=== PATIENT | female | born 1985 | race Two or more races ===

== ENCOUNTER 2021-01-31 21:02 | Emergency (ER) | payer MEDICAID ==
[~2021-01-31] VITALS: Ht 170.2 cm; Wt 89.2 kg
--- NOTE | 2021-01-31 22:29 | RAD ---
Exam: Chest one view INDICATION: Fever, cough TECHNIQUE: Frontal view of the chest Comparisons: None FINDINGS: The cardiomediastinal silhouette and pulmonary vessels are within normal limits. The lung and pleural spaces are clear. IMPRESSION: No acute cardiopulmonary process. Electronically signed by: Mary James MD (01/31/2021 10:27 PM) [facility]
[2021-01-31] MEDS ORDERED: IV NORMAL SALINE 1000ML BAG 1,000 ML IV ONE (22:30)
[2021-01-31] MEDS ORDERED: ONDANSETRON PF 4 MG/2 ML VIAL. IVP ONE (22:30)
[2021-01-31] MEDS ORDERED: KETOROLAC 30 MG/ML VIAL. IVP ONE (22:30)
[2021-01-31] MEDS ORDERED: DEXAMETHASONE SOD PHOS 20 MG/5 ML VIAL. IV ONE (22:30)
--- NOTE | 2021-01-31 22:35 | PHYS DOC ---
Past Medical History Past Medical History: UTI Additional Past Medical Histor: Pre-DM (LINDA HENNING DO) Past Surgical History: (LINDA HENNING DO) Smoking Status: Never Smoker Alcohol Use: None Drug Use: None (LINDA HENNING DO) General Adult EDM: Chief Complaint: MULTIPLE COMPLAINTS HPI: HPI: Patient is a 35 year old female who presents with 10 days of headache, cough, body aches, fever, chills, nausea, shortness of breath. Patient just moved here 10 days ago from [place]. She is not vaccinated for Covid. Rates her overall discomfort and pain a 8 out of 10. Denies abdominal pain, vomiting, diarrhea, dizziness, syncope, focal weakness, numbness or tingling, vision change. Denies past medical history. (CHOLO DENG APRN) Review of Systems: Review of Systems: Constitutional: + fever or +chills. [] Eyes: Denies change in visual acuity. [] HENT: Denies nasal congestion or sore throat. [] Respiratory: + cough or +shortness of breath. [] Cardiovascular: Denies chest pain or edema. [] GI: Denies abdominal pain, +nausea, denies omiting, bloody stools or diarrhea. [] : Denies dysuria. [] Musculoskeletal: Denies back pain or joint pain. + Generalized body aches [] Integument: Denies rash. [] Neurologic: + headache, denies focal weakness or sensory changes. [] Endocrine: Denies polyuria or polydipsia. [] Lymphatic: Denies swollen glands. [] Psychiatric: Denies depression or anxiety. [] (CHOLO DENG APRN) Heart Score: C/O Chest Pain: No Risk Factors: Risk Factors: DM, Current or recent (<one month) smoker, HTN, HLP, family history of CAD, obesity. Risk Scores: Score 0 - 3: 2.5% MACE over next 6 weeks - Discharge Home Score 4 - 6: 20.3% MACE over next 6 weeks - Admit for Clinical Observation Score 7 - 10: 72.7% MACE over next 6 weeks - Early Invasive Strategies (CHOLO DENG APRN) Allergies: Allergies: Allergies Coded Allergies Type Severity Reaction Last Updated Verified No Known Drug Allergies 01/31/21 No (CHOLO DENG APRN) Physical Exam: PE: Constitutional: Well developed, well nourished, no acute distress, non-toxic appearance. [] HENT: Normocephalic, atraumatic, bilateral external ears normal, oropharynx moist, no oral exudates, nose normal. [] Eyes: PERRLA, EOMI, conjunctiva normal, no discharge. [] Neck: Normal range of motion, no tenderness, supple, no stridor. [] Cardiovascular:Heart rate regular rhythm, no murmur [] Lungs & Thorax: Bilateral upper breath sounds clear lower diminished to auscultation [] Abdomen: Bowel sounds normal, soft, no tenderness, no masses, no pulsatile masses. [] Skin: Warm, dry, no erythema, no rash. [] Back: No tenderness, no CVA tenderness. [] Extremities: No tenderness, no cyanosis, no clubbing, ROM intact, no edema. [] Neurologic: Alert and oriented X 3, normal motor function, normal sensory function, no focal deficits noted. [] Psychologic: Affect normal, judgement normal, mood normal. [] (CHOLO DENG APRN) EKG: EKG: [] (CHOLO DENG APRN) EKG: @2255 NSR at 89bpm, NO ST elevation, QRS 78ms, QT/QTc 348/424ms, t wave inversion III (LINDA HENNING DO) Radiology/Procedures: Radiology/Procedures: [] Impression: [facility] [address], [place] [id number] IMAGING REPORT Signed PATIENT: ARTHUR TIDWELLACCOUNT: [id number] : 1985 LOCATION: ER AGE: 35 SEX: F EXAM STATUS: REG ER ORD. PHYSICIAN: CHOLO DENG APRN REASON: fever, cough PROCEDURE: PORTABLE CHEST 1V Exam: Chest one view INDICATION: Fever, cough TECHNIQUE: Frontal view of the chest Comparisons: None FINDINGS: The cardiomediastinal silhouette and pulmonary vessels are within normal limits. The lung and pleural spaces are clear. IMPRESSION: No acute cardiopulmonary process. Electronically signed by: Mary Gregorio MD (01/31/2021 10:27 PM) [facility] DICTATED and SIGNED BY: MARY GREGORIO MD DATE: 01/31/21 [id number] 0 (CHOLO DENG ORDERLY) Course & Med Decision Making: Course & Med Decision Making Pertinent Labs and Imaging studies reviewed. (See chart for details) COVID-19 CRITERIA: The patient was evaluated during the global COVID-19 pandemic, and that diagnosis was suspected/considered upon their initial presentation. Their evaluation, treatment and testing was consistent with current guidelines for patients who present with complaints or symptoms that may be related to COVID-19. See HPI. Alert and oriented x4. Ambulatory steady gait. Speaks in full clear sentences. Balloon Pilot phone used. Patient is Divehi-speaking. Abdomen is soft and nontender. Lungs are clear in upper lobes and diminished in lower lobes. Skin pink warm and dry. She is given dexamethasone and Zofran in the ED. She is also given a liter of normal saline. Patient is 100% on room air. Chest x-ray shows no acute findings. [] (CHOLO DENG ORDERLY) Dragon Disclaimer: Dragon Disclaimer: This electronic medical record was generated, in whole or in part, using a voice recognition dictation system. (CHOLO DENG ORDERLY) Departure Departure Impression: Primary Impression: COVID-19 Disposition: 01 HOME / SELF CARE / HOMELESS Condition: STABLE Referrals: NO PCP (PCP) Patient Instructions: Viral Syndrome Additional Instructions: Definicin Se le realiz la prueba de deteccin del COVID-19 o se le diagnostic dicha enfermedad. Es cee infeccin ocasionada por un nuevo tipo de coronavirus. En la mayora de los casos, el COVID-19 provoca sntomas similares a los del resfriado. En algunas personas, puede ocasionar sntomas ms graves, donnie problemas respiratorios. No existe un tratamiento para el virus COVID-19. El cuerpo elimina la infeccin con el tiempo. El cuidado personal ayuda a aliviar el malestar. Pasos que debe seguir 1. Cuidados personales Descanse cuando sea necesario. Los hbitos saludables pueden ayudarlo a sentirse mejor. Algunas medidas para lograr cambios incluyen lo siguiente: - Elija alimentos saludables, donnie frutas y verduras. Jamila abundante cantidad de agua latanya todo el da. - Duerma devon por la noche. - Si fuma, intente no hacerlo. [place] ayudar a mejorar la respiracin. - Evite el alcohol. 2. Mantenga sanos a los dems El virus puede contagiarse a otras personas. Cada vez que estornuda o tose, se liberan gotitas. Las gotitas pueden entrar en la boca, la nariz o los ojos de las personas que se encuentran cerca de usted y ocasionar la infeccin. Para reducir las probabilidades de contagiar el virus COVID-19 a otros, tenga en cuenta lo siguiente: - Qudese en casa el tiempo que el mdico se lo indique. Es posible que deba quedarse en casa hasta que la enfermedad desaparezca. Salga nicamente para recibir atencin mdica o en atul de urgencia. - Evite las reas pblicas, los eventos o el transporte pblico. No reanude las actividades laborales o escolares hasta que el mdico lo autorice. - Llame previamente si necesita asistir a un centro mdico. Avise que es posible que haya contrado COVID-19. [place] ayudar a que le indiquen adonde debe dirigirse. Raphael[place] pueden pedirle que use cee mscara facial cuando vaya al consultorio. Si llama a los servicios de asistencia mdica de urgencias, avseles que es posible que haya contrado COVID-19. Mientras est en casa: - Evite el contacto directo con otras personas. Mantngase a cee distancia aproximada de 2 metros. Si es posible, pasen la mayor parte del tiempo en winslow separadas. - Use cee mscara facial si estar en contacto directo con otras personas, por ejemplo, si compartir cee habitacin o un vehculo. - Pida a alguien que limpie las superficies comunes de la casa. Limpie picaportes, mesadas y lavamanos con limpiadores domsticos todos los adamson. - Al toser o estornudar, cbrase con un pauelo de papel. Despus de usarlo, deschelo de inmediato. Si no tiene un pauelo de papel, tosa o estornude en el pliegue del codo. - Lvese las weston con frecuencia. Lvese las weston despus de estornudar o toser. Lvese con agua y jabn latanya, al menos, 20 segundos. Si no dispone de agua y jabn, use un limpiador de weston a base de alcohol. - No cocine para otros. Evite compartir objetos personales, donnie tenedores, cucharas o cepillos de dientes. - Mientras est enfermo, evite el contacto directo con las mascotas. No hay indicios de si el virus se transmite a las mascotas. Esta es cee medida de seguridad que debe tenerse en cuenta hasta que se sepa ms acerca de paulino virus. El aislamiento puede ser frustrante. La interaccin social puede ayudar. Mantngase en contacto con amigos y familiares por telfono u otros medios tecnolgicos. Puede interactuar con otras personas en el hogar, annika mantenga cee distancia borrego de aproximadamente 2 metros. Seguimiento Las pruebas para confirmar la presencia del COVID-19 pueden demorar algunos adamson. Es posible que deba seguir los pasos mencionados anteriormente hasta que estn los resultados de las pruebas. Lo llamarn del consultorio mdico para saber si guevara habido algn cambio en diaz redd. Tambin le avisarn cuando pueda volver a estar cerca de otras personas. Problemas a los que debe estar atento Comunquese con el mdico si no se recupera segn lo previsto o si tiene problemas donnie los siguientes: - Dificultad para respirar - Dolor de pecho - Empeoramiento de los sntomas Si pablo que tiene cee urgencia, llame a los servicios de asistencia mdica de urgencias de inmediato. As taken from [facility] Attending Signature Attending Signature I have reviewed the PA/AMUSEMENT RIDE OPERATOR's note and plan of care. I was available for consultation as needed during the patient's visit in the emergency department. I agree with the clinical impression, plan, and disposition. (LINDA HENNING DO) CHOLO DENG ORDERLY Jan 31, 2021 22:35 LINDA HENNING DO Jan 31, 2021 23:29
[2021-01-31] MEDS ORDERED: ALBUTEROL SULFATE 2.5 MG/3 ML NEBU. NEB ONE (23:00)
[2021-01-31 23:15] LABS: BASO # 0.1 x10^3/uL (0.0-0.2); BASO % 1 % (0-3); EOS # 0.1 x10^3/uL (0.0-0.7); EOS % 2 % (0-3); HEMATOCRIT 34.1 % (36.0-47.0); HEMOGLOBIN 11.7 g/dL (12.0-15.5); LYMPH # 1.8 x10^3/uL (1.0-4.8); LYMPH % 30 % (24-48); MEAN CORPUSCULAR HEMOGLOBIN 29 pg (25-35); MEAN CORPUSCULAR HGB CONC 34 g/dL (31-37); MEAN CORPUSCULAR VOLUME 86 fL (79-100); MONO # 0.4 x10^3/uL (0.0-1.1); MONO % 7 % (0-9); NEUT # 3.6 x10^3/uL (1.8-7.7); NEUT % 60 % (31-73); PLATELET COUNT 240 x10^3/uL (140-400); RED BLOOD COUNT 3.99 x10^6/uL (3.50-5.40); RED CELL DISTRIBUTION WIDTH 14.3 % (11.5-14.5); WHITE BLOOD COUNT 6.1 x10^3/uL (4.0-11.0)
[2021-01-31 23:33] LABS: BILIRUBIN,URINE NEGATIVE (NEG); CLARITY,URINE CLEAR; COLOR,URINE YELLOW; NITRITE,URINE NEGATIVE (NEG); PH,URINE 6.5 (<5.0-8.0); PROTEIN,URINE NEGATIVE (NEG-TRACE); UROBILINOGEN,URINE 0.2 mg/dL (0.2 mg/dL)
[2021-01-31 23:39] LABS: CALCIUM 8.6 mg/dL (8.5-10.1); GFR 62.4; POTASSIUM 3.7 mmol/L (3.5-5.1)
[2021-01-31 23:45] LABS: ALBUMIN 3.6 g/dL (3.4-5.0); ALBUMIN/GLOBULIN RATIO 0.9 (1.0-1.7); TOTAL BILIRUBIN 0.3 mg/dL (0.2-1.0); TOTAL PROTEIN 7.5 g/dL (6.4-8.2)
[2021-02-01 00:11] LABS: BACTERIA,URINE FEW /HPF (0-FEW)
[2021-02-01 01:26] VITALS: BP 112/87
--- NOTE | 2021-02-01 22:01 | EKG ---
[facility] [address] [place] [address] Test Date: 2021-01-31 Test Time: 22:55:27 Pat Name: ARTHUR TIDWELL Department: Room: Gender: F Computer Aided Design Drafter: : 1985 Requested By: CHOLO DENG Order Number: [id number] Reading MD: Measurements Intervals Canadian Rate: 89 P: 42 KS: 150 QRS: 58 QRSD: 78 T: 26 QT: 348 QTc: 424 Interpretive Statements SINUS RHYTHM NON SPECIFIC T ABNORMALITY BORDERLINE ECG RI6.02 No previous ECG available for comparison
== END 2021-02-01 01:53 | disposition home or self-care (01) ==
LOC: ER 21:02
DX: U07.1 COVID-19 (principal)
CPT/HCPCS: 36415; 71045; 80053; 81001; 81025; 83605; 84484; 85025; 85379; 87040; 87070; 87426; 87880; 93005; 94640; 96361; 96374; 96375; 99285; J1100; J1885; J2405; J7030; J7613

== ENCOUNTER 2021-02-05 03:38 | Emergency (ER) | payer MEDICAID ==
[~2021-02-05] VITALS: Ht 170.2 cm; Wt 160.0 kg
[2021-02-05 03:55] VITALS: BP 110/68
[2021-02-05] MEDS ORDERED: METH4TAB2 PO (03:59)
[2021-02-05] MEDS ORDERED: VENTOLIN HFA18 GM INH (03:59)
--- NOTE | 2021-02-05 04:00 | PHYS DOC ---
Past Medical History Past Medical History: No Pertinent History, UTI Additional Past Medical Histor: Pre-DM Past Surgical History: Smoking Status: Never Smoker Alcohol Use: None Drug Use: None General Adult EDM: Chief Complaint: Cough, fever, shortness of breath and known COVID-19 positive HPI: HPI: 35-year-old otherwise healthy female presents to the emergency department for 4 days of cough, wheezing/shortness of breath, loss of taste, headaches, body, tested positive for COVID-19 several days ago, says symptoms are persistent, denies any chest pain, no neck stiffness or photophobia, no known history of thromboembolism No recent travel or antibiotic use, of note patient is Portuguese-speaking and 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 Review of Systems: Review of Systems: General: positive for fever, chills and body aches Eyes: no blurred vision, no diplopia Skin: no rashes Neck: no swelling, no neck stiffness, no neck pain Heme: no bleeding, no lymph node enlargement Ear/Nose/Throat: No sore throat, + runny nose, no hearing loss, no difficulty swallowing Cardiovascular: no Chest pain, no palpitations Respiratory: + dyspnea, + cough, no hemoptysis Gastrointestinal: No abdominal pain, no nausea, no vomiting, no diarrhea, no blood in stool Genitourinary: no dysuria, no hematuria Musculoskeletal: no back pain, no leg pain, no arm pain, no arthralgia Neurologic: no headaches, no dizziness, no focal numbness/tingling, no focal weakness Psych: no depression, no anxiety, no SI/HI *All review of systems are negative other than what is noted above Heart Score: C/O Chest Pain: No Risk Factors: Risk Factors: DM, Current or recent (<one month) smoker, HTN, HLP, family history of CAD, obesity. Risk Scores: Score 0 - 3: 2.5% MACE over next 6 weeks - Discharge Home Score 4 - 6: 20.3% MACE over next 6 weeks - Admit for Clinical Observation Score 7 - 10: 72.7% MACE over next 6 weeks - Early Invasive Strategies Allergies: Allergies: Allergies Coded Allergies Type Severity Reaction Last Updated Verified No Known Drug Allergies 01/31/21 No Physical Exam: PE: Gen-well appearing, no acute distress Head: Normocephalic/Atraumatic ENT: atraumatic, PERRLA, EOMI, oropharynx clear Neck: supple, full ROM/strength, no JVD, no nuchal rigidity Lungs: no distress, speaks in full sentences, Clear to auscultation bilaterally CV: reg rate, rhythm, no murmus/rubs/gallops, peripheral pulses equal in all extremities Abdomen: soft/nontender, no guarding/rebound tenderness, no rigidity, non distended, normoactive bowel sounds Musculoskeletal: full ROM/strength in all extremities, atraumatic, no swelling Back: full range of motion/strength Skin: intact, no rashes Lymph: no gross DIONE Neuro: alert and oriented x 4, CN 2-12 grossly intact, Motor strength is 5/5 in all extremities, no focal sensory deficits, no focal ataxia, ambulatory with steady gait Psych: normal mood/affect EKG: EKG: [] Radiology/Procedures: Radiology/Procedures: [] Course & Med Decision Making: Course & Med Decision Making Pertinent Labs and Imaging studies reviewed. (See chart for details) [] 35-year-old female known to be Covid positive presented to the ED with continued symptomatology that would be expected in COVID-19, she has a room air O2 sat of 94%, vital signs otherwise normal, no increased work of breathing, no known cardiac risk factors, no obvious clinical signs of any acute superimposed bacterial pneumonia, PE, acute coronary syndrome, will get chest x-ray give her some Decadron for symptoms, will give her a prescription for albuterol and dexamethasone, I do not believe physical indication for further ED work-up or imaging and this can be managed with close outpatient primary care follow-up Patient was seen in the ED for COVID-19 infection, there is no apparent evidence of any emergency medical pathology at this time, patient was advised follow-up with their primary care provider /physician in the next 24-48 hours and to return to the ED before then if any new or worsening / concerning symptoms had developed. All questions and concerns were addressed at time of disposition Dragon Disclaimer: Anne Disclaimer: This electronic medical record was generated, in whole or in part, using a voice recognition dictation system. Departure Departure Impression: Primary Impression: COVID-19 Additional Impression: Dyspnea and respiratory abnormalities Disposition: HOME / SELF CARE / HOMELESS Condition: IMPROVED Referrals: NO PCP (PCP) KAN NAVARRO MD 2 days Patient Instructions: Viral Infections Additional Instructions: You have COVID-19, this illness will last around 10 to 14 days, that time for me to quarantine until your symptoms are gone, I do recommend you get vaccinated after your illness subsides, I am going to give you a prescription for some steroids and breathing medicines, I want you to follow-up with one of her primary care doctors in the next 48 hours, return to the nearest emergency room before then if any new or worsening/concerning symptoms develop Scripts Albuterol Sulfate (VENTOLIN HFA INHALER) 18 Gm Hfa.aer.ad 2 PUFF INH QID for FOR ASTHMA, #1 INHALER 0 Refills Prov: IRENA JUNG MD 02/05/21 Methylprednisolone (MEDROL) 4 Mg Tab.ds.pk 1 PKG PO UD for inflammation, #1 PKG Prov: IRENA JUNG MD 02/05/21 IRENA JUNG MD Feb 05, 2021 04:00
[2021-02-05] MEDS ORDERED: DEXAMETHASONE SOD PHOS 4 MG/ML VIAL IM ONE (04:30)
--- NOTE | 2021-02-05 05:09 | RAD ---
XR CHEST 1V Clinical Indication: Reason: cough / Comparison: AP chest January 31, 2021. Findings: The cardiomediastinal silhouette is normal. Interval development of numerous patchy airspace opacitie s throughout the lungs. There is sparing of the lung apices. There is no pneumothorax. No pleural eff usion is appreciated. No acute bone abnormality. IMPRESSION: There are numerous patchy airspace opacities throughout the lungs. Primary consideration is pneumonia including Covid pneumonitis. Electronically signed by: Curtis Sands MD (02/05/2021 5:07 AM) [facility]
== END 2021-02-05 04:35 | disposition home or self-care (01) ==
LOC: ER 03:38
DX: U07.1 COVID-19 (principal); R06.00 Dyspnea, unspecified; Z87.440 Personal history of urinary (tract) infections; Z98.890 Other specified postprocedural states
CPT/HCPCS: 71045; 96372; 99283; J1100